=== PATIENT | male | born 1970 ===

== ENCOUNTER 2021-07-02 08:00 | Outpatient (CLI) | payer OTHER, BC ==
--- NOTE | 2021-07-02 16:49 | XRAY Report ---
PROCEDURE: Hand 2 View LT INDICATIONS: L HAND PX TECHNIQUE: 2 views of the hand(s) acquired. COMPARISON: None FINDINGS: Bones: No fractures or dislocations. No suspicious bony lesions. Soft tissues: No suspicious soft tissue calcifications. IMPRESSION: No acute fracture. No osseous lesion. If symptoms and/or clinical suspicion for pathology continue, f urther assessment with repeat plain films, or advanced imaging (e.g., CT, MRI, or bone scan) is recom mended for further assessment. Reviewed by: Sandy Cisneros MD on 07/02/2021 4:48 PM PDT Approved by: Sandy Cisneros MD on 07/02/2021 4:48 PM PDT Station ID: [id number]
== END 2021-07-02 23:59 | disposition home or self-care (01) ==
LOC: DI.N 08:00
PROVIDERS: ATTEND Nurse Practitioner
DX: M79.642 Pain in left hand (principal)